=== PATIENT | female | born 1985 | race Caucasian/White ===

== ENCOUNTER 2018-06-08 23:13 | Emergency (ER) | payer OTHER ==
[~2018-06-08] VITALS: Ht 157.5 cm; Wt 74.8 kg
[2018-06-08 23:21] VITALS: BP_SYST 127
[2018-06-09] MEDS ORDERED: AMOXICILLIN 500 MG CAPSULE PO ONE (01:45)
[2018-06-09 02:20] VITALS: BP_SYST 124
== END 2018-06-09 02:20 | disposition home or self-care (01) ==
LOC: SED 23:13
DX: J03.90 Acute tonsillitis, unspecified (principal); F17.200 Nicotine dependence, unspecified, uncomplicated
CPT/HCPCS: 99283

== ENCOUNTER 2021-08-13 23:35 | Emergency (ER) | payer OTHER ==
[~2021-08-13] VITALS: Ht 157.5 cm; Wt 81.6 kg
--- NOTE | 2021-08-13 23:40 | NUR ---
Patient to ER bed 7 to gown for evaluation. Side rails up.
--- NOTE | 2021-08-13 23:41 | NUR ---
Dr. Yin [facility] for pt eval
[2021-08-13 23:43] VITALS: BP_SYST 140
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
[2021-08-14] MEDS ORDERED: NACL 0.9% 1,000 ML IV ONE (00:30)
--- NOTE | 2021-08-14 00:50 | NUR ---
VSS no s/s of acute distress Resting on gurney rails up
[2021-08-14 01:13] LABS: BILIRUBIN,URINE NEGATIVE (NEGATIVE); CLARITY/URINE CLEAR (CLEAR); COLOR,URINE YELLOW (YELLOW); GLUCOSE,URINE NEGATIVE (NEGATIVE); KETONES,URINE NEGATIVE (NEGATIVE); LEUKOCYTE ESTERASE ,URINE NEGATIVE (NEGATIVE); NITRITE, URINE NEGATIVE (NEGATIVE); PH,URINE 5.5 (5.0-8.0); PROTEIN URINE NEGATIVE (NEGATIVE); UROBILINOGEN,URINE 0.2 (0.2-1.0)
[2021-08-14 01:20] LABS: CALCIUM 9.9 mg/dL (8.4-11.0); CREATININE 0.87 mg/dL (0.55-1.30); POTASSIUM 3.6 mmol/L (3.5-5.1)
[2021-08-14 01:22] LABS: BLOOD, URINE TRACE (NEGATIVE)
[2021-08-14 01:36] LABS: ALBUMIN 3.8 g/dL (3.4-4.8); TOTAL BILIRUBIN 0.5 mg/dL (0.0-1.0)
--- NOTE | 2021-08-14 01:41 | NUR ---
Pt's Orthostats WNL, Dr. Yin aware, awaiting lab results
[2021-08-14 02:42] LABS: BASOPHILS # (AUTO) 0.1 K/uL (0.0-0.2); BASOPHILS % (AUTO) 0.4 % (0.0-2.0); EOSINOPHILS # (AUTO) 0.1 K/uL (0.0-0.4); EOSINOPHILS % (AUTO) 0.7 % (0.0-4.0); HEMATOCRIT 36.7 % (36-48); HEMOGLOBIN 12.4 g/dL (12.0-16.0); LYMPHOCYTES # (AUTO) 3.9 K/uL (1.0-5.5); LYMPHOCYTES % (AUTO) 30.4 % (20.5-51.5); MEAN CORPUSCULAR HEMOGLOBIN 29 pg (27-31); MEAN CORPUSCULAR HGB CONC 34 % (32-36); MEAN CORPUSCULAR VOLUME 87 fL (79.0-98.0); MONOCYTES # (AUTO) 0.6 K/uL (0.0-1.0); MONOCYTES % (AUTO) 4.4 % (1.7-9.3); NEUTROPHILS # (AUTO) 8.3 K/uL (1.8-7.7); NEUTROPHILS % (AUTO) 64.1 % (40.0-70.0); PLATELET COUNT (AUTO) 325 K/uL (130-430); RED BLOOD CELL COUNT(AUTO) 4.24 MIL/uL (4.2-6.2); RED CELL DISTRIBUTION WIDTH 13.3 % (9.0-15.0)
--- NOTE | 2021-08-14 02:48 | NUR ---
Pt resting in comfort on gurney rails up
[2021-08-14] MEDS ORDERED: ONDANSETRON 4 MG ODT TAB ONE (03:35)
[2021-08-14] MEDS ORDERED: ONDA-8 TL ×2 (03:39→03:42)
[2021-08-14] MEDS ORDERED: HYDR-3917 PO ×2 (03:39→03:42)
[2021-08-14 03:50] VITALS: BP_SYST 140
--- NOTE | 2021-08-14 03:50 | NUR ---
Patient given written and verbal discharge instructions and verbalizes understanding. ER MD discussed with patient the results and treatment provided. Patient in stable condition. ID arm band removed. IV catheter removed intact and dressing applied, no active bleeding. Rx of Zofran and [place] given. Patient educated on pain management and to follow up with PMD. Pain Scale 0/10 Opportunity for questions provided and answered. Medication side effect fact sheet provided.
== END 2021-08-14 03:50 | disposition home or self-care (01) ==
LOC: SED 23:35
DX: R53.83 Other fatigue (principal); T50.995A Adverse effect of other drugs, medicaments and biological substances, initial encounter; Y92.89 Other specified places as the place of occurrence of the external cause
CPT/HCPCS: 36415; 80053; 81003; 82550; 83690; 85025; 96360; 99283; J7030; Q0162

== ENCOUNTER 2024-07-31 06:19 | Emergency (ER) | payer OTHER ==
[~2024-07-31] VITALS: Ht 157.5 cm; Wt 79.8 kg
[~2024-07-31 06:19] MED LIST: ONDA-8 TL
[2024-07-31 06:23] VITALS: BP_SYST 132; PULSE 62; RESP 16; O2SAT 97
[2024-07-31] MEDS ORDERED: TRAM50TA2 PO (07:51)
[2024-07-31 08:04] VITALS: BP_SYST 133; PULSE 72; RESP 18; TEMP 97.8; O2SAT 97
== END 2024-07-31 08:00 | disposition home or self-care (01) ==
LOC: SED 06:19
DX: S00.83XA Contusion of other part of head, initial encounter (principal); S10.83XA Contusion of other specified part of neck, initial encounter; R09.89 Other specified symptoms and signs involving the circulatory and respiratory systems; Z79.899 Other long term (current) drug therapy; W22.8XXA Striking against or struck by other objects, initial encounter; Y93.89 Activity, other specified; Y92.89 Other specified places as the place of occurrence of the external cause; Y99.8 Other external cause status
CPT/HCPCS: 70150; 72040; 99284